=== PATIENT | female | born 1945 | race Hispanic/Latino ===

== ENCOUNTER 2018-03-15 10:28 | Outpatient (CLI) | payer MEDICARE ==
--- NOTE | 2018-03-16 13:12 | Mammography Report ---
BILATERAL DIGITAL SCREENING MAMMOGRAM with CAD: 03/15/18 10:28:00 CLINICAL: Routine screening. COMPARISON: 10/23/16 and 05/24/15 FINDINGS: There are bilateral scattered areas of fibroglandular density.No mass, architectural distortion or suspicious calcifications. IMPRESSION: No mammographic evidence of malignancy. BI-RADS CATEGORY: 1 -- Negative RECOMMENDATION: Routine mammographic screening in one year. COMMENT: Patient follow-up letters are generated by our [employer] application.
== END 2018-03-15 10:29 | disposition home or self-care (01) ==
LOC: MAMMO 10:28
PROVIDERS: ATTEND Internal Medicine
DX: Z12.31 Encounter for screening mammogram for malignant neoplasm of breast (principal)
CPT/HCPCS: 77067

== ENCOUNTER 2018-04-14 12:19 | Emergency (ER) | payer MEDICARE ==
[2018-04-14 18:24] VITALS: BP 140/48
== END 2018-04-14 13:00 | disposition left against medical advice (07) ==
LOC: ED 12:19
DX: R11.0 Nausea (principal); Z53.21 Procedure and treatment not carried out due to patient leaving prior to being seen by health care provider

== ENCOUNTER 2021-11-01 07:36 | Day surgery (SDC) | payer MEDICARE ==
[~2021-11-01 07:36] MED LIST: SODIUM CHLORIDE 0.9% 1000 ML 1,000 ML IV SCH
--- NOTE | 2021-11-01 08:46 | Anesthesia Consultation ---
Anesthesia Consult and Med Hx Date of service: 11/01/21 - Airway Anesthetic Teeth Evaluation: Poor (denies loose teeth) ROM Head & Neck: Adequate Mental/Hyoid Distance: Adequate Mallampati Class: Class II Intubation Access Assessment: Probably Good - Pre-Operative Health Status ASA Pre-Surgery Classification: ASA3 Proposed Anesthetic Plan: MAC - Pulmonary Hx Smoking: No Hx Respiratory Symptoms: No - Cardiovascular System Hx Hypertension: Yes Hx Heart Attack/AMI: No - Central Nervous System CVA: No - Endocrine Hx Renal Disease: No Hx Liver Disease: Yes (primary biliary cirrhosis) Hx Insulin Dependent Diabetes: No Hx Non-Insulin Dependent Diabetes: No Hx Thyroid Disease: No - Other Systems Hx Obesity: No
--- NOTE | 2021-11-01 08:46 | Anesthesia Day of Surgery ---
Anesthesia Day of Surgery - Day of Surgery Patient Examined: Yes Patient H&P Reviewed: Yes Patient is NPO: Yes
[2021-11-01] MEDS ORDERED: propofoL 200 MG/20 ML VIAL IV ONE ×3 (10:39→11:12)
[2021-11-01] MEDS ORDERED: LIDOCAINE MPF (2%) 20 MG/1 ML VIAL 5 ML ONE (10:39)
--- NOTE | 2021-11-01 11:27 | Procedure Note ---
Date of procedure: 11/01/21 Pre-op diagnosis: Anemia/ H/o PBC Post-op diagnosis: other (Mild to Moderate Ersoive Esophagitis/R/O Eosinophilic Esophagitis/ Moderate,Hiatal Hernia/ Gastritis/ R/O Celiac Disease/ Solitary,Small Colon Polyp/Proctitis/R/O Microscopic Colitis and Ileitis) Procedure: EGD with Biopsy/ Colonoscopy with Biopsy Anest[place]: [facility] [place] Surgeon: BLAS CASTAÑEDA Estimated blood loss: minimal Pathology: list Specimen disposition: to lab Condition: stable Disposition: same day (Treat with Rowasa Enema and PPI. Avoid aspirin and NSAID for 5 days; otherwise resume previous medication and F/U in 1 to 2 weeks ([phone]).)
--- NOTE | 2021-11-01 11:55 | Operative Report ---
DATE OF SURGERY: 11/01/2021 PROCEDURE PERFORMED: EGD with biopsy. INDICATIONS: This is a 76-year-old white female with an underlying history of primary biliary cholangitis. She has lately been noted to be anemic and EGD was done to make sure there was not any significant upper GI pathology present that would also account for the patient's anemia. DESCRIPTION OF PROCEDURE: Procedure was done after getting informed consent with MAC anesthesia, instrument was passed through the hypopharynx into the esophagus, which showed mild to moderate erosive esophagitis. Stomach showed presence of a moderate hiatal hernia on the retroverted view as well as gastritis. The pylorus is patent. The duodenum in the first and second portion appeared normal. There was no peptic ulcer noted within the duodenal or gastric lumen. Biopsy was done from the second part of the duodenum to rule out for celiac disease. Additional biopsy was done from the gastric antrum, gastric body and angular incisura to rule out for H. pylori and atrophic gastritis. Biopsy was also done from the mid as well as the distal esophagus to assess for eosinophilic esophagitis and also to assess for the severity of the erosive esophagitis. There was minimal bleeding associated with the procedure. ASSESSMENT: Anemia and history of primary biliary cholangitis, mild to moderate erosive esophagitis, moderate hiatal hernia, gastritis, rule out celiac disease, rule out eosinophilic esophagitis. PLAN: To treat the patient with PPI, have the patient avoid aspirin and aspirin-related products for the next few days and to do a colonoscopy for further assessment of the patient's anemia. The patient will also be advised to follow up in the office in 1-2 weeks' time. Procedure was done in the GI lab with assistance of the GI lab team, which included the GI nurse, the service tech/welder and with assistance of anesthesia. TID: [id number] RECEIPT: [id number] LORI/JEFFREY
--- NOTE | 2021-11-01 12:17 | Operative Report ---
DATE OF SURGERY: 11/01/2021 PROCEDURE: Colonoscopy. INDICATIONS: This is a 76-year-old white female with an underlying history of primary biliary cholangitis. EGD done prior to the colonoscopy had shown presence of [id number] erosive esophagitis, moderate hiatal hernia and gastritis, but no peptic ulcer disease was noted. Colonoscopy was done to make sure there was not any significant lower GI pathology present that would account for the patient's anemia. Initial rectal examination was unremarkable. The patient does have a prolapsed bladder though, which may have to be addressed by either a cane burner or an urologist. DESCRIPTION OF PROCEDURE: Instrument was passed through the rectum onto the cecum which was identified with ileocecal valve and the appendiceal orifice. A pediatric colonoscope was used. Terminal ileum was intubated which showed normal mucosa. Biopsy was done to rule out for possible ileitis. Random biopsies were done from the cecum and the ascending colon, which showed normal mucosa. In the mid transverse colon, there was a small polyp, possibly 7-8 mm in diameter that was sessile that was removed by cold biopsy. Additional random biopsies were done from the transverse as well as from the left colon to rule out for microscopic colitis. The rectum did show some evidence of proctitis. Biopsy was done from this area as well and the patient needs to be treated with Rowasa enema for that. There was minimal bleeding associated with the biopsies that were done. ASSESSMENT: Anemia, history of primary biliary cholangitis, solitary small polyp noted in the transverse colon, removed by cold biopsy, rule out microscopic colitis, rule out ileitis proctitis. PLAN: To treat the patient with PPI because of the EGD findings of esophagitis and gastritis also to place the patient on Rowasa enema because of the findings of proctitis. Await for the biopsy results. Further treatment adjustment will be according to the biopsy findings. The patient will be asked to follow up in the office in 1-2 weeks' time. Procedure was done in the GI lab with assistance of the GI Lab Team which included the GI nurse, the solar technician and with assistance of anesthesia. TID: [id number] RECEIPT: [id number] LORI
--- NOTE | 2021-11-01 12:38 | Post Anesthesia Evaluation ---
- Post Anesthesia Evaluation Patient Participated: Yes Airway Patent: Yes Stable Respiratory Function: Yes Nausea/Vomiting: No Temp > 96.8F: Yes Pain Manageable: Yes Adequeate Hydration: Yes Anesthesia Complications: No
[2021-11-01 15:48] VITALS: BP 121/75
== END 2021-11-01 12:00 | disposition home or self-care (01) ==
LOC: GIO 07:36
DX: D64.9 Anemia, unspecified (principal); K21.00 Gastro-esophageal reflux disease with esophagitis, without bleeding; D12.3 Benign neoplasm of transverse colon; K29.50 Unspecified chronic gastritis without bleeding; K64.8 Other hemorrhoids; K63.89 Other specified diseases of intestine; K31.89 Other diseases of stomach and duodenum; I10 Essential (primary) hypertension; Z79.899 Other long term (current) drug therapy; Z98.890 Other specified postprocedural states; Z88.5 Allergy status to narcotic agent
CPT/HCPCS: 43239; 45380; 88305; 88342; J2704; J3490; J7030; J7120; Q0162

== ENCOUNTER 2022-05-16 08:46 | Outpatient (CLI) | payer MEDICARE ==
--- NOTE | 2022-05-19 11:12 | Mammography Report ---
DIGITAL SCREENING MAMMOGRAM WITH CAD, 05/16/2022 CLINICAL INFORMATION / INDICATION: Routine screening mammography. SCREENING MAMMOGRAM TECHNIQUE: Digital bilateral 2D mammography was obtained in the craniocaudal and mediolateral obliqu e projections. This examination was interpreted with the benefit of Computer-Aided Detection analysis . COMPARISON: Prior mammogram 03/15/2018 FINDINGS: Breast Density: There are scattered areas of fibroglandular density. No dominant mass, suspicious calcifications, or architectural distortion in either breast. There has been no significant change compared with the prior examination. IMPRESSION: No mammographic evidence of malignancy. Follow up recommendation: Routine yearly screening mammogram. BI-RADS Category 1: NEGATIVE A "normal" or negative report should not discourage follow up or biopsy of a clinically significant f inding. A written summary of these findings will be mailed to the patient. The patient will be entered into a mammography reporting system which will generate a reminder letter for the patient's next appointmen t at the appropriate interval. The [employer] recommends yearly mammograms starting at age 40 and continuing as l jazzy as a woman is in good health. Breast MRI is recommended for women with an approximate 20-25% or greater lifetime risk of breast cancer, including women with a strong family history of breast or ova karissa cancer or who have been treated for Hodgkin's disease. Signer Name: Ele Merida MD Signed: 05/19/2022 11:08 AM Workstation Name: [id number]
== END 2022-05-16 08:47 | disposition home or self-care (01) ==
LOC: MAMMO 08:46
PROVIDERS: ATTEND Internal Medicine
DX: Z12.31 Encounter for screening mammogram for malignant neoplasm of breast (principal)
CPT/HCPCS: 77067